=== PATIENT | male | born 1965 | race Caucasian/White ===

== ENCOUNTER 2019-03-12 06:36 | Day surgery (SDC) | payer OTHER ==
[~2019-03-12] VITALS: Ht 172.7 cm; Wt 89.3 kg
[~2019-03-12 06:36] MED LIST: BUSP10 PO; Diclofenac Pota50 MG PO; PRAM.125; PROZAC20 MG PO; Prilosec Otc20 MG PO; Prinivil10 MG PO; TRAZ100 PO
--- NOTE | 2019-03-12 07:15 | NUR ---
03/12/19 0715 Dior Valdez D 1 IV MISS RW BY YANIRA VALVE 1 GOOD IV IN RFA BY YANIRA PT TOW
== END 2019-03-12 09:30 | disposition home or self-care (01) ==
LOC: ORSCSDS 06:36
DX: R11.2 Nausea with vomiting, unspecified (principal); Z12.11 Encounter for screening for malignant neoplasm of colon; K21.9 Gastro-esophageal reflux disease without esophagitis; D12.2 Benign neoplasm of ascending colon; D12.8 Benign neoplasm of rectum; K44.9 Diaphragmatic hernia without obstruction or gangrene; K29.70 Gastritis, unspecified, without bleeding; I10 Essential (primary) hypertension; G47.33 Obstructive sleep apnea (adult) (pediatric); E11.9 Type 2 diabetes mellitus without complications; E78.00 Pure hypercholesterolemia, unspecified; Z79.899 Other long term (current) drug therapy
CPT/HCPCS: 82947; 88305; 88342; J0330; J0461; J2001; J2405; J2704; J7120

== ENCOUNTER 2019-03-24 08:29 | Day surgery (SDC) | payer OTHER ==
[~2019-03-24] VITALS: Ht 172.7 cm; Wt 77.1 kg
[2019-03-24 08:58] LABS: PCO2 Arterial 80 mmHg (35-45); pH Blood Arterial <6.80 (7.35-7.45)
[2019-03-24 09:05] LABS: Calcium, Ionized (POC) 1.06 mmol/L (1.10-1.46); Chloride (POC) 113 mmol/L (98-108); Creatinine (POC) 3.1 mg/dL (0.8-1.3); Glucose (ISTAT POC) 74 mg/dL (70-99); Hemoglobin (POC) 13.6 g/dL (13.5-17.5); Sodium (POC) 140 mmol/L (135-148); Total CO2 (POC) 14 mmol/L (21-32)
[2019-03-24 09:05] LABS: Calcium, Ionized (POC) 1.27 mmol/L (1.10-1.46); Chloride (POC) 114 mmol/L (98-108); Creatinine (POC) 3.1 mg/dL (0.8-1.3); Glucose (ISTAT POC) 200 mg/dL (70-99); Hemoglobin (POC) 10.9 g/dL (13.5-17.5); Potassium (POC) 6.7 mmol/L (3.5-5.5); Sodium (POC) 139 mmol/L (135-148); Total CO2 (POC) 11 mmol/L (21-32)
[2019-03-24 09:21] LABS: Hematocrit 44.4 % (37.0-53.0); Hemoglobin 12.7 g/dL (13.5-17.5); Mean Corpuscular HGB 33.6 pg (26.0-34.0); Mean Corpuscular HGB Conc 28.6 g/dL (31.5-36.5); Mean Corpuscular Volume 118 fL (80-100); NRBC ABSOLUTE 0.08 K/mm3 (0.00-0.02); NRBC Auto 0.7 /100 WBC (0.0-0.2); RDW Coefficient Variation 12.4 % (11.7-14.2); RDW Standard Deviation 54.4 fL (35.1-46.3); Red Blood Cell Count 3.78 M/mm3 (4.30-5.90); White Blood Cell Count 10.93 K/mm3 (4.00-11.30)
[2019-03-24 09:39] LABS: Albumin, Blood 3.1 g/dL (3.4-5.0); Albumin/Globulin Ratio 0.7 (0.8-1.8); Bilirubin, Total 0.8 mg/dL (0.1-1.0); Bun/Creatinine Ratio 11.6 (12.0-20.0); Calcium, Blood 9.2 mg/dL (8.5-10.1); Creatinine, Blood 2.94 mg/dL (0.60-1.20); Globulin, Blood 4.2 g/dL (2.2-4.0); Total Protein, Blood 7.3 g/dL (6.4-8.2)
[2019-03-24 09:40] LABS: Mean Platelet Volume 9.4 fL (9.1-12.4); Platelet Count 108 K/mm3 (150-400)
[2019-03-24 09:44] LABS: BAND PERCENT MAN 3 % (0-8); BASOPHILS PERCENT MAN 0 % (0-2); EOSINOPHILS ABSOLUTE MAN 0.21 K/mm3 (0.00-0.68); EOSINOPHILS PERCENT MAN 2 % (0-6); LYMPHOCYTES ABSOLUTE MAN 3.82 K/mm3 (0.84-5.20); LYMPHOCYTES PERCENT MAN 35 % (21-46); METAMYELOCYTE PERCENT MAN 1 % (0-0); MONOCYTES ABSOLUTE MAN 1.42 K/mm3 (0.16-1.47); MONOCYTES PERCENT MAN 13 % (4-13); NEUTROPHILS ABSOLUTE MAN 5.35 K/mm3 (1.96-9.15); SEG NEUTROPHILS PERCENT MAN 46 % (41-73); TOTAL CELLS COUNTED 100
[2019-03-24 09:51] LABS: Magnesium, Blood 3.9 mg/dL (1.6-2.4)
[2019-03-24 09:53] LABS: International Normalized Ratio 1.51; Prothrombin Time Results 15.4 Sec (9.7-11.5)
--- NOTE | 2019-03-24 10:00 | NUR ---
Patient arrived post report from ER via [place]. He was intubated on arrival and had Levophed and VNS infusing. He was a four person slide transfer to ICU 5 bed. He had RIJ central line that had bloody drainage but patent. He has 20ga LFA and 18ga RH. He was non responsive and fixed pupils 5 bilateraly. He was on no sedation. He had 16Fr. [place] with no output. He has systolic 60's and MAP40's. Dr Zimmerman had us increase vasopressin to 0.08 units/min. and Levophed maxed out to 30 mcg/min. Started NS bolus. Called for Epi gtt. Hooked patient up to monitor. he had 8.0 ET and 24cm at lips, vent settings AC22, TV 500, FiO2 100% and PEEP 5.0 with sats low 90%'s. Left restraint unhooked as he had no neuro response. Dr Zimmerman in room and writing orders
[2019-03-24 10:05] LABS: Calcium, Ionized (POC) 1.12 mmol/L (1.10-1.46); Chloride (POC) 115 mmol/L (98-108); Creatinine (POC) 2.9 mg/dL (0.8-1.3); Glucose (ISTAT POC) 117 mg/dL (70-99); Hemoglobin (POC) 7.8 g/dL (13.5-17.5); Potassium (POC) 6.2 mmol/L (3.5-5.5); Sodium (POC) 143 mmol/L (135-148); Total CO2 (POC) 10 mmol/L (21-32)
[2019-03-24 10:16] LABS: PCO2 Arterial 34 mmHg (35-45); PO2 Arterial 396 mmHg (80-100); pH Blood Arterial <6.80 (7.35-7.45)
[2019-03-24 10:29] LABS: Potassium, Blood 6.4 mmol/L (3.5-5.5)
[2019-03-24 10:33] LABS: Hematocrit 31.2 % (37.0-53.0); Hemoglobin 9.1 g/dL (13.5-17.5)
[2019-03-24 10:38] LABS: Phosphorus, Blood 17.3 mg/dL (2.5-4.9)
--- NOTE | 2019-03-24 10:44 | NUR ---
I was called to the ED and met patient's family in the waiting room and brought them back to the ED consult room. Dr. Buckner explained to patient's spouse, Yue, about what is happening with the patient and what the plan of care will be. I sat with family and provided prayer and a calming presence. RN Stone Rigger, Bharat came to consult room and brought Yue to the patient while I stayed with patient's children, Sanchez and Kathleen. At the appropriate time I brought Sanchez and Kathleen over to the ICU waiting room and sat with the family as the ICU explained about patient's condition. I continued to offer support to family until another son, Jose Martin and his Tonie arrived. I explained what the doctor had stated earlier to Jose Martin and Tonie and then allowed the family time together in private. I will continue to remain available to patient's family.
--- NOTE | 2019-03-24 11:00 | NUR ---
Started Epi gtt at 1030 and systolic 70-80's and MAP low 60's, RT titrated FiO2 to 60%. Family has talked with Dr Zimmerman and he has explained plan and possible poor outcome. Have given Multiple Amps of Bicarb, See MAR. He still shows no signs of neuro, gag reflex, or movement. Pupils 5 and fixed. He temp when came in 87.9 and is currently 87.1. Dr zimmerman staed no need for cooling blankets and he was satisfied with him be in low 87's.
--- NOTE | 2019-03-24 11:49 | NUR ---
Echocardiogram completed.
--- NOTE | 2019-03-24 12:30 | NUR ---
Dr. Zimmerman place art line and at 1108 started david-synepherine at 40mcg and systolic currently 80's.HR remains 80's. Abd US done
[2019-03-24 12:32] LABS: PCO2 Arterial 40.8 mmHg (35-45); PO2 Arterial 77.9 mmHg (80-100)
[2019-03-24 12:50] LABS: Hematocrit 25.7 % (37.0-53.0); Hemoglobin 7.7 g/dL (13.5-17.5)
[2019-03-24 13:19] LABS: Albumin, Blood 1.8 g/dL (3.4-5.0); Blood Urea Nitrogen 29 mg/dL (8-24); Bun/Creatinine Ratio 11.6 (12.0-20.0); Calcium, Blood 8.9 mg/dL (8.5-10.1); Chloride, Blood 105 mmol/L (98-108); Glomerular Filtration Rate 29 (60-); Glucose, Blood 352 mg/dL (70-99); Potassium, Blood 5.9 mmol/L (3.5-5.5); Sodium, Blood 147 mmol/L (136-145)
[2019-03-24 13:30] LABS: Anion Gap 34 mmol/L (6-16); CO2, Blood 8 mmol/L (21-32); Phosphorus, Blood 15.8 mg/dL (2.5-4.9)
--- NOTE | 2019-03-24 13:30 | NUR ---
Patient has had no Neuro changes and family has bee explained that we have done everything possible and will continuue meds and treatment until he no longer responds. Abdomen increased in size and Dr Zimmerman has spoken to Dr Camacho and they feel he is not stable enough to scope. Continue several more times with Bicarb boluses and Calcium cl. with alittle increase to BP, 120 systolic. Still no urine output. Increased blood output from OG.
--- NOTE | 2019-03-24 15:00 | NUR ---
Family at bedside. Have given several more NS boluses and 3 amps Bicarb and Calcium Cl.. No neuro changes and shows no sign of stimuli response. HR remains 80-90's and systolic 90-100's.RT has titrated FiO2 back up to 100% and sats high 80's to low 90%.
--- NOTE | 2019-03-24 15:30 | NUR ---
Patient starting to decline and all pressoirs are maxed out. Levophed 30mcg, Vasopressin 0.16 units/min, Epinepherin 20mcg, Zuhair-symepherine 200 mcg/min, Bicarb gtt at 250ml/hr. Family around bedside. He is starting to have blood leak from rectuma nd mouth and increased drainage from RIJ.
--- NOTE | 2019-03-24 16:24 | NUR ---
Stayed with family throughout the day. Providing life review, grief support and prayer. Family grieves appropriately.
--- NOTE | 2019-03-24 16:30 | NUR ---
Talked with family and they decided to have us stop gtt and vent and let him go. At 1610 he passed with asystole and family at bedside. After vent disconnected did not take another breath. Called [facility] and Marty Graham stated OK to realease body and eye and tissue hernadez wants us to wair before releaseing to [facility].
== END 2019-03-24 16:08 ==
LOC: ER 08:29 → ICUE 10:02 → ER 10:02 → ICUW 10:02 → ICUE 10:04 → ICUW 10:04 → MHTC 10:06 → ICUE 16:08
PROVIDERS: Emergency Medicine; Internal Medicine; Internal Medicine Critical Care Medicine; Nurse Practitioner Acute Care
PROC: 0BH17EZ Insertion of Endotracheal Airway into Trachea, Via Natural or Artificial Opening (ICD-10-PCS; principal; 2019-03-24)
PROC: 5A1935Z Respiratory Ventilation, Less than 24 Consecutive Hours (ICD-10-PCS; 2019-03-24)
PROC: 04HK33Z Insertion of Infusion Device into Right Femoral Artery, Percutaneous Approach (ICD-10-PCS; 2019-03-24)
DX: I46.9 Cardiac arrest, cause unspecified (principal); J96.01 Acute respiratory failure with hypoxia; K72.01 Acute and subacute hepatic failure with coma; M62.82 Rhabdomyolysis; E78.2 Mixed hyperlipidemia; N17.9 Acute kidney failure, unspecified; I10 Essential (primary) hypertension; E11.9 Type 2 diabetes mellitus without complications; K21.9 Gastro-esophageal reflux disease without esophagitis; F10.20 Alcohol dependence, uncomplicated; R57.9 Shock, unspecified; G47.33 Obstructive sleep apnea (adult) (pediatric); D50.0 Iron deficiency anemia secondary to blood loss (chronic); E78.5 Hyperlipidemia, unspecified; F17.220 Nicotine dependence, chewing tobacco, uncomplicated; Z51.5 Encounter for palliative care; Z79.4 Long term (current) use of insulin
CPT/HCPCS: 31500; 31720; 36415; 36556; 36600; 36620; 51702; 71045; 76705; 80047; 80053; 80069; 82550; 82803; 83605; 83735; 84100; 84484; 85014; 85018; 85025; 85379; 85610; 86850; 86900; 86901; 87040; 92950; 93005; 93010; 93306; 94002; 94640; 96365-59; 96375-59; 96376-59; 99291-25; C1751; G0480; J0171; J0282; J0330; J0461; J1815; J2370; J7030; J7040; J7060; J7070; P9046